=== PATIENT | female | born 1995 | race African-American/Black ===

== ENCOUNTER 2017-08-01 00:14 | Emergency (ER) | payer BC, OTHER ==
[~2017-08-01] VITALS: Ht 165.1 cm; Wt 77.1 kg
--- NOTE | ~2017-08-01 | EKG ---
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
== END 2017-08-01 01:24 | disposition home or self-care (01) ==
LOC: ER 00:14
DX: R07.89 Other chest pain (principal)

== ENCOUNTER 2020-06-08 03:02 | Emergency (ER) | payer BC ==
[~2020-06-08] VITALS: Ht 165.1 cm; Wt 72.6 kg
[2020-06-08 03:08] VITALS: BP 119/71
[2020-06-08] MEDS ORDERED: PREDNISONE 10 M10 MG PO (04:23)
== END 2020-06-08 04:52 | disposition home or self-care (01) ==
LOC: ER 03:02
DX: L50.8 Other urticaria (principal); T78.40XA Allergy, unspecified, initial encounter; Y92.89 Other specified places as the place of occurrence of the external cause